=== PATIENT | female | born 1950 | race Caucasian/White ===

== ENCOUNTER 2017-02-17 16:43 | Inpatient (IN) | payer MEDICARE, MEDICAID ==
[~2017-02-17] VITALS: Ht 167.6 cm; Wt 79.4 kg
--- NOTE | 2017-02-17 16:45 | NUR ---
BIBRA FROM FROM [facility] LEFT SIDE FACIAL DROOP X 45MINS RN LPN LVN. PATIENT REMAINS AWAKE, ALERT AND ORIENTED,SATING 92 % ON ROOM AIR. NO SLURRED SPEECH NOTED. NO BODY WEAKNESS NOTED. PATIENT'S VS STABLE/. PROVIDED O2 VIA NC. MD MCINTYRE MADE AWARE OF PATIENT;S ARRIVAL.
--- NOTE | 2017-02-17 16:45 | NUR ---
Note undone in EDM - 02/17/17 at 1703 by [email or web address] BIBRA FROM [facility] LEFT SIDE FACIAL DROOP X 45MINS CARBONATION TESTER. PATIENT REMAINS AWAKE, ALERT AND ORIENTED,SATING 92 % ON ROOM AIR. NO SLURRED SPEECH NOTED. NO BODY WEAKNESS NOTED. PATIENT'S VS STABLE/. PROVIDED O2 VIA NC. MD MCINTYRE MADE AWARE OF PATIENT;S ARRIVAL.
--- NOTE | 2017-02-17 16:47 | NUR ---
CODE STROKE ACTIVATED BY MD MCINTYRE
--- NOTE | 2017-02-17 16:48 | NUR ---
PATIENT WAS TAKEN STRAIGHT TO CT
--- NOTE | 2017-02-17 16:58 | NUR ---
CALLED [facility]. DR NGUYEN WILL BE CALLING BACK
--- NOTE | 2017-02-17 16:59 | NUR ---
PATIENT IS BACK FROM CT
--- NOTE | 2017-02-17 17:00 | NUR ---
FUSE CUTTER AT BS
--- NOTE | 2017-02-17 17:06 | NUR ---
SUGAR PICCLINE NOTED WITH NO RESISTANCE
--- NOTE | 2017-02-17 17:07 | NUR ---
DR. NGUYEN FROM [facility]- TALKING TO THE PT THRU ROBOT
--- NOTE | 2017-02-17 17:15 | NUR ---
DR. MCINTYRE AT BS TALKING TO DR. NGUYEN. FRIEND AT BS AND UPDATED WITH POC.
[2017-02-17 17:19] LABS: BASOPHILS # (AUTO) 0.7 /CMM (0.0-0.2); BASOPHILS % (AUTO) 2.8 % (0.0-2.0); EOSINOPHILS # (AUTO) 0.2 /CMM (0.0-0.7); HEMATOCRIT 29 % (33-45); HEMOGLOBIN 9.2 g/dL (11.5-14.8); LYMPHOCYTES # (AUTO) 0.9 /CMM (0.8-4.8); LYMPHOCYTES % (AUTO) 3.8 % (20.0-44.0); MEAN CORPUSCULAR HEMOGLOBIN 25 PG (26.0-33.0); MEAN CORPUSCULAR HGB CONC 31 g/dl (31.0-36.0); MEAN CORPUSCULAR VOLUME 80 fL (82-100); MONOCYTES # (AUTO) 1.8 /CMM (0.1-1.30); MONOCYTES % (AUTO) 7.5 % (2.0-12.0); NEUTROPHILS # (AUTO) 20.3 /CMM (1.8-8.9); NEUTROPHILS % (AUTO) 84.9 % (43.0-81.0); PLATELET COUNT (AUTO) 606 /CMM (150-450); RDW COEFFICIENT OF VARIATION 19.9 (11.5-15.0); WHITE BLOOD COUNT (AUTO) 23.9 K/uL (4.3-11.0)
[2017-02-17] MEDS ORDERED: predniSONE 20 MG TABLET ONE (17:19)
[2017-02-17] MEDS ORDERED: ASPIRIN 325 MG TABLET ONE (17:20)
[2017-02-17] MEDS ORDERED: VALACYCLOVIR HCL 500 MG TABLET ONE (17:20)
[2017-02-17] MEDS ORDERED: predniSONE 20 MG TABLET PO ONE (17:30)
[2017-02-17] MEDS ORDERED: VALACYCLOVIR HCL 500 MG TABLET PO ONE (17:30)
[2017-02-17] MEDS ORDERED: ASPIRIN 325 MG TABLET PO ONE (17:30)
[2017-02-17] MEDS ORDERED: IPRA3AMP IH (17:32)
[2017-02-17] MEDS ORDERED: NA P133E RC (17:32)
[2017-02-17] MEDS ORDERED: TRAZ-144 PO (17:32)
[2017-02-17] MEDS ORDERED: LEVO125T8 PO (17:32)
[2017-02-17] MEDS ORDERED: AMIO200T2 PO (17:32)
[2017-02-17] MEDS ORDERED: FLUT1DIS5 IH (17:32)
[2017-02-17] MEDS ORDERED: TIOT4MIS2 INH (17:32)
[2017-02-17] MEDS ORDERED: FOND7.5D9 SQ (17:32)
[2017-02-17] MEDS ORDERED: DOCU-170 PO (17:32)
[2017-02-17] MEDS ORDERED: BISA10SU8 RC (17:32)
[2017-02-17] MEDS ORDERED: BUDE1AMP2 IH (17:32)
[2017-02-17] MEDS ORDERED: ACET-868 PO (17:32)
[2017-02-17] MEDS ORDERED: MAGN400O6 PO (17:32)
[2017-02-17] MEDS ORDERED: HYDR-552 PO (17:32)
[2017-02-17 17:33] LABS: CALCIUM, SERUM 9.8 mg/dL (8.5-10.1); CARBON DIOXIDE 33 mmol/L (21-32); CHLORIDE 96 mmol/L (98-107); CREATININE 0.7 mg/dL (0.6-1.3); GLUCOSE 97 mg/dL (74-106); POTASSIUM 4.5 mmol/L (3.5-5.1); SODIUM SERUM 134 mmol/L (136-145); UREA NITROGEN, BLOOD 12 mg/dL (7-18)
[2017-02-17] MEDS ORDERED: HYDROCODONE/APAP 5/325MG 1 EACH TABLET ONE (17:51)
[2017-02-17 18:00] LABS: INR 1.13 (0.87-1.13); PROTHROMBIN TIME 11.8 SECS (9.5-12.7)
[2017-02-17] MEDS ORDERED: HYDROCODONE/APAP 5/325MG 1 EACH TABLET PO ONE (18:00)
--- NOTE | 2017-02-17 18:00 | NUR ---
FC INITIATED. URINE SAMPLE OBTAINED, SENT.
[2017-02-17 18:15] LABS: TROPONIN I < 0.017 ng/mL (0.00-0.056)
[2017-02-17 18:18] LABS: BAND % (MANUAL) 4 % (0.0-5.0); EOSINOPHILS % (MANUAL) 2 % (0-4); LYMPHOCYTES % (MANUAL) 5 % (16-48); MONOCYTES % (MANUAL) 4 % (0-11.0); NEUTROPHILS % (MANUAL) 85 (42-76)
[2017-02-17] MEDS ORDERED: PIPERACILLIN /TAZOBACTAM 3.375 G in IV D5W 50 ML IV ONE (18:30)
[2017-02-17 18:42] LABS: APPEARANCE,URINE Clear (CLEAR); BILIRUBIN,URINE Negative (NEGATIVE); BLOOD, URINE Negative Ery/uL (NEGATIVE); COLOR,URINE Yellow (YELLOW); KETONES,URINE Negative (NEGATIVE); LEUKOCYTE ESTERASE ,URINE Negative (NEGATIVE); NITRITE, URINE Negative (NEGATIVE); PROTEIN,URINE Trace mg/dl (NEGATIVE); UGLUCOSE Negative (NEGATIVE)
[2017-02-17 18:50] LABS: BACTERIA,URINE Moderate /HPF (None Seen); RBC,URINE NONE SEEN /HPF (0-2); WBC,URINE 0-2 /HPF (0-3)
[2017-02-17 18:51] LABS: SQUAMOUS EPITHELIAL CELL,UR Few /HPF (None Seen)
[2017-02-17 18:53] LABS: ALBUMIN 2.1 g/dL (3.4-5.0); BILIRUBIN,DIRECT 0.1 mg/dL (0.0-0.2); BILIRUBIN,TOTAL 0.3 mg/dL (0.2-1.0); TOTAL PROTEIN, SERUM 6.9 g/dL (6.4-8.2)
--- NOTE | 2017-02-17 19:01 | NUR ---
REPORT GIVEN TO JONI CARNES FOR TELE ROOM 306.
--- NOTE | 2017-02-17 19:04 | NUR ---
ADMIT TO THE FLOOR, ACCEPTED BY DR. RIVAS
[2017-02-17 19:30] VITALS: BP 107/59
--- NOTE | 2017-02-17 19:30 | NUR ---
SUPERVISOR WATERPROOFING NOTE RECEIVED PATIENT AWAKE ALERT AND ORIENTED, VIA GURNEY FROM ER. PATIENT RECEIVING 3L OF O2 VIA NASAL CANNULA FOR SOB. NEURO CHECKS DONE. RIGHT SIDED FACIAL DROOP NOTED. NO OTHER DEFICIENCIES. ALL EXTREMITIES STRONG AND WNL. SPEECH CLEAR. PATIENT DENIES ANY PAIN AT THIS TIME. PICC LINE TO SUGAR INTACT WITH NO REDNESS NOTED. ALL BELONGINGS CHECKED AND ACCOUTNED FOR. SKIN INTACT WITH NO BREAKDOWN NOTED. SOME BRUISING NOTED TO BILAT. ARMS. BED LOCKED AND IN LOWEST POSITION, SIDE RAILS UP, CALL LIGHT WITHIN REACH. WILL NOTIFY DR. RANGEL.
[2017-02-17 20:00] VITALS: BP 107/59
--- NOTE | 2017-02-17 20:30 | NUR ---
CHILDREN'S TUTOR NURSERY NOTE ORDERS RECEIVED AND CARRIED OUT.
[2017-02-17] MEDS: IV D5/ 0.9% NACL 1,000 ML IV PRN (21:02)
[2017-02-18] VITALS: BP 127/74
[2017-02-18] MEDS ORDERED: PIPERACILLIN /TAZOBACTAM 3.375 G in IV D5W 50 ML IV SCH ×2 (03:00→07:36)
[2017-02-18] MEDS ORDERED: PIPERACILLIN /TAZOBACTAM 3.375 G VIAL IV ONE (03:00)
[2017-02-18 04:00] VITALS: BP 118/71
[2017-02-18] MEDS: IV D5/ 0.9% NACL 1,000 ML IV PRN ×2 (06:29→18:12)
[2017-02-18 06:34] LABS: HEMATOCRIT 28 % (33-45); HEMOGLOBIN 8.7 g/dL (11.5-14.8); LYMPHOCYTES # (AUTO) 0.4 /CMM (0.8-4.8); LYMPHOCYTES % (AUTO) 2.2 % (20.0-44.0); MEAN CORPUSCULAR HEMOGLOBIN 25 PG (26.0-33.0); MEAN CORPUSCULAR HGB CONC 31 g/dl (31.0-36.0); MEAN CORPUSCULAR VOLUME 81 fL (82-100); MONOCYTES # (AUTO) 0.6 /CMM (0.1-1.30); MONOCYTES % (AUTO) 3.2 % (2.0-12.0); NEUTROPHILS # (AUTO) 18.3 /CMM (1.8-8.9); NEUTROPHILS % (AUTO) 94.6 % (43.0-81.0); PLATELET COUNT (AUTO) 518 /CMM (150-450); RDW COEFFICIENT OF VARIATION 21.4 (11.5-15.0); RED BLOOD CELL COUNT(AUTO) 3.45 MIL/uL (4.0-5.2); WHITE BLOOD COUNT (AUTO) 19.3 K/uL (4.3-11.0)
--- NOTE | 2017-02-18 06:44 | NUR ---
MS RN NOTE PATIENT STABLE. RECEIVING 3L VIA NASAL CANNULA. SLEEPING AT THIS TIME. IV FLUIDS RUNNING ORDERED. F/C C/D/I. TELE DISCONTINUED. WILL ENDORSE TO DAY SHIFT FOR SIMIN.
[2017-02-18 06:55] LABS: CALCIUM, SERUM 9.4 mg/dL (8.5-10.1); CREATININE 0.7 mg/dL (0.6-1.3); MAGNESIUM 2.2 mg/dL (1.8-2.4); PHOSPHORUS 5.4 mg/dL (2.5-4.9); POTASSIUM 4.1 mmol/L (3.5-5.1)
--- NOTE | 2017-02-18 07:25 | NUR ---
MS RN NOTES RECEIVED PATIENT IN BED, AWAKE. A/O X3 ON OXYGEN AT 3LPM VIA NC, APPEARS PALE, WEAK BUT COMFORTABLE IN BED. NO SOB. IVF D5 1/2 NS INFUSING AT 100ML/HR. PATIENT IS CURRENTLY ON NPO STATUS ORDERED. RIGHT CHEST PRESENCE OF DRAIN, DRESSING IN PLACE. CALL LIGHT WITHIN REACH. WILL CONT TO MONITOR.
--- NOTE | 2017-02-18 08:10 | NUR ---
REPORT GIVEN TO ABDULAZIZ/RN FOR CONTINUITY OF CARE.
--- NOTE | 2017-02-18 08:11 | NUR ---
MS RN RECEIVE DON BED, SLEEPING, ORIENTED X3,NOT IN ANYF ORM OF DISTRESS, RESPIRATIONS EVEN AND UNLABORED,NO SOB NOTED, ON 2 2LITERS, SATURATING 97%,ABDOMEN SOFT,POSITIVE BOWEL SOUNDS,DENIES PAIN AT THIS TIME, WILL MONITOR PATIENT'S CONDITION.CALL LIGHT W/IN REACH.
[2017-02-18] MEDS ORDERED: FLUTICASONE/SALMETEROL DISKUS IH SCH ×2 (09:00→17:00)
[2017-02-18] MEDS ORDERED: TIOTROPIUM BROMIDE 6 CAP/BOX CAP.W.DEV IH SCH (09:00)
--- NOTE | 2017-02-18 10:00 | NUR ---
MS RN WAS SEEN BY DR. CHELITA Crooks/ ORDERS MADE AND CARRIED OUT.
[2017-02-18 10:17] LABS: BAND % (MANUAL) 3 % (0.0-5.0); LYMPHOCYTES % (MANUAL) 4 % (16-48); MONOCYTES % (MANUAL) 3 % (0-11.0); NEUTROPHILS % (MANUAL) 90 (42-76)
[2017-02-18] MEDS ORDERED: ONDANSETRON HCL/PF 4 MG/2 ML VIAL IV PRN (11:00)
--- NOTE | 2017-02-18 11:20 | NUR ---
MS RN WAS SEEN BY SPEECH THERAPIST, PUREED DIET RECOMMENDED.
[2017-02-18 12:00] LABS: CHOLESTEROL 150 mg/dL (<200); HDL CHOLESTEROL 56 mg/dL (40-60); LDL 77 mg/dL (0-99); TRIGLYCERIDES 79 mg/dL (30-150)
--- NOTE | 2017-02-18 12:00 | NUR ---
MS CARNES LUNCH SERVED,DUE MEDS GIVEN,TOLERATED WELL.
--- NOTE | 2017-02-18 12:20 | NUR ---
MS RN REFUSED PT AT THIS TIME.
--- NOTE | 2017-02-18 12:20 | NUR ---
MS RN REFUSED PT AT THIS TIME.
[2017-02-18] MEDS: PANTOPRAZOLE 40 MG VIAL IV SCH (12:22)
[2017-02-18] MEDS: FLUTICASONE/VILANTEROL 1 EACH BLST.W.DEV IH SCH (12:22)
[2017-02-18] MEDS: PIPERACILLIN /TAZOBACTAM 3.375 G in IV D5W 50 ML IV SCH ×2 (12:26→18:12)
[2017-02-18] MEDS ORDERED: ACETAMINOPHEN 325 MG TABLET PO PRN (12:30)
[2017-02-18] MEDS ORDERED: BISACODYL SUPP (10 MG) 10 MG/SUPP.RECT SUPP.RECT RC PRN (12:30)
[2017-02-18] MEDS ORDERED: MAGNESIUM HYDROXIDE 30 ML UDC PO PRN (12:30)
[2017-02-18] MEDS ORDERED: NA PHOS,M-B/NA PHOS,DI-BA 1 EA ENEMA RC PRN (12:30)
[2017-02-18] MEDS ORDERED: DOCUSATE SODIUM 100 MG CAPSULE PO PRN (12:30)
[2017-02-18] MEDS ORDERED: IPRATROPIUM NEB FS 0.5 MG/2.5 ML AMPUL.NEB NEB PRN (13:00)
[2017-02-18 16:00] VITALS: BP 131/72
[2017-02-18] MEDS: HYDROCODONE/APAP 5/325MG 1 EACH TABLET PO PRN (16:41)
[2017-02-18] MEDS: HYDROMORPHONE 1 MG/1 ML DISP.SYRIN IV PRN (18:12)
--- NOTE | 2017-02-18 19:00 | NUR ---
ms rn patient went down to ct scan,all needs attended.
[2017-02-18] MEDS ORDERED: IOHEXOL-300 100 ML VIAL IV ONE (19:06)
[2017-02-18] MEDS ORDERED: IV NS 0.9% 250 ML IV ONE (19:06)
[2017-02-18 20:00] VITALS: BP 124/62
[2017-02-18] MEDS: ENOXAPARIN SODIUM 40 MG/0.4 ML DISP.SYRIN SQ SCH (20:05)
[2017-02-18] MEDS: IPRATROPIUM NEB FS 0.5 MG/2.5 ML AMPUL.NEB NEB SCH (20:08)
[2017-02-18] MEDS: BUDESONIDE RESPULE INH 0.5 MG/2 ML AMPUL.NEB IH SCH (20:29)
--- NOTE | 2017-02-18 20:30 | NUR ---
VAMSI RN NOTE PATIENT STABLE. ARRIVED BACK FROM CT. ON 3L O2 VIA NASAL CANNULA. BED LOCKED AND IN LOWEST POSITION. SIDE RAILS UP, CALL LIGHT WITHIN REACH. WILL CONTINUE TO MONITOR.
[2017-02-19] MEDS: PIPERACILLIN /TAZOBACTAM 3.375 G in IV D5W 50 ML IV SCH ×4 (00:26→18:18)
[2017-02-19] MEDS: HYDROMORPHONE 1 MG/1 ML DISP.SYRIN IV PRN ×3 (00:27→14:33)
[2017-02-19] MEDS: IPRATROPIUM NEB FS 0.5 MG/2.5 ML AMPUL.NEB NEB SCH ×4 (01:49→19:35)
[2017-02-19] MEDS: HYDROCODONE/APAP 5/325MG 1 EACH TABLET PO PRN (05:45)
[2017-02-19] MEDS: IV D5/ 0.9% NACL 1,000 ML IV PRN ×2 (05:51→17:28)
[2017-02-19 06:45] LABS: EOSINOPHILS # (AUTO) 0.3 /CMM (0.0-0.7); EOSINOPHILS % (AUTO) 1.6 % (0.0-6.0); HEMATOCRIT 28 % (33-45); HEMOGLOBIN 8.4 g/dL (11.5-14.8); LYMPHOCYTES # (AUTO) 0.5 /CMM (0.8-4.8); LYMPHOCYTES % (AUTO) 2.7 % (20.0-44.0); MEAN CORPUSCULAR HEMOGLOBIN 25 PG (26.0-33.0); MEAN CORPUSCULAR HGB CONC 30 g/dl (31.0-36.0); MEAN CORPUSCULAR VOLUME 81 fL (82-100); MONOCYTES # (AUTO) 1.4 /CMM (0.1-1.30); MONOCYTES % (AUTO) 8.3 % (2.0-12.0); NEUTROPHILS # (AUTO) 15.3 /CMM (1.8-8.9); NEUTROPHILS % (AUTO) 87.4 % (43.0-81.0); PLATELET COUNT (AUTO) 568 /CMM (150-450); RDW COEFFICIENT OF VARIATION 21.2 (11.5-15.0); RED BLOOD CELL COUNT(AUTO) 3.39 MIL/uL (4.0-5.2); WHITE BLOOD COUNT (AUTO) 17.5 K/uL (4.3-11.0)
--- NOTE | 2017-02-19 06:50 | NUR ---
MS RN NOTE PATIENT STABLE. ALL NEEDS MET AND ATTENDED TO. WILL ENDORSE TO DAY SHIFT FOR SIMIN.
[2017-02-19 06:59] LABS: CALCIUM, SERUM 8.8 mg/dL (8.5-10.1); CREATININE 0.7 mg/dL (0.6-1.3); PHOSPHORUS 3.9 mg/dL (2.5-4.9); POTASSIUM 3.8 mmol/L (3.5-5.1); THYROID STIMULATING HORMONE 1.96 uIU/mL (0.358-3.74)
--- NOTE | 2017-02-19 07:30 | NUR ---
RN OPENING NOTES RECEIVED PT. IN BED A&OX3. BREATHING ON OXYGEN 3L/MIN, HEAD OF BED IS UP. NO S/S OF ACUTE DISTRESS. IV FLUIDS RUNNING AT 100 ML/HR. PT. HAS A LEFT UPPER ARM PICC DOUBLE LUMEN. DÍAZ CATHETER IN PLACE WITH CLEAR, AND YELLOW URINE. BED IS IN LOW LOCKED POSITION, 2 SIDE RAILS UP, AND INSTRUCTED PT. TO USE CALL LIGHT FOR ASSISTANCE. WILL CONTINUE TO ASSESS AND MONITOR.
[2017-02-19 08:12] VITALS: BP 110/69
[2017-02-19] MEDS: BUDESONIDE RESPULE INH 0.5 MG/2 ML AMPUL.NEB IH SCH ×2 (08:12→16:22)
[2017-02-19] MEDS ORDERED: Medication Not On Formulary EA (Tiotropium Bromide (Spiriva Respimat) 2 PUFF) INH SCH (09:00)
[2017-02-19] MEDS: PANTOPRAZOLE 40 MG VIAL IV SCH (09:17)
[2017-02-19] MEDS: LEVOTHYROXINE SODIUM 125 MCG TABLET PO SCH (09:17)
[2017-02-19] MEDS: FLUTICASONE/VILANTEROL 1 EACH BLST.W.DEV IH SCH (09:18)
[2017-02-19] MEDS: TRAZODONE 50 MG TABLET PO SCH (09:18)
[2017-02-19] MEDS: AMIODARONE HCL 200 MG TABLET PO SCH (09:18)
--- NOTE | 2017-02-19 11:00 | NUR ---
RN NOTES PT. WAS SEEN AND EVALUATED BY SPEECH THERAPIST FOR SWALLOW EVALUATION. PER ST WAS RECOMMENDED SMALL PORTION OF PUREE FOOD ONLY, AND OKAY TO DRINK THIN LIQUIDS.
[2017-02-19] MEDS: VALACYCLOVIR HCL 500 MG TABLET PO SCH ×2 (13:03→20:33)
[2017-02-19] MEDS: predniSONE 20 MG TABLET PO SCH (13:03)
[2017-02-19 16:00] VITALS: BP 110/62
--- NOTE | 2017-02-19 16:19 | NUR ---
RN NOTES PT. LEFT ROOM 308 BED 2 AND MOVED TO NEW ROOM 306 BED 2 DUE TO PT. IN BED 308 BED 1 WAS PLACED ON ISOLATION.
--- NOTE | 2017-02-19 16:24 | NUR ---
RT PT IS AWAKE AND ALERT. PT REFUSED HHN TX AT THIS TIME. NO SIGNS OF SOB OR RESPIRATORY DISTRESS NOTED. WILL CONTINUE TO MONITOR. Addendum: 02/19/17 at 1626 by VENKAT SWAIN RT Amended: Links added.
[2017-02-19] MEDS: ALBUTEROL FS 2.5 MG/0.5 ML VIAL.NEB NEB PRN (19:35)
--- NOTE | 2017-02-19 19:35 | NUR ---
RN CLOSING NOTES PT. IN BED A&OX3. BREATHING ON OXYGEN 3L/MIN, HEAD OF BED IS UP. NO S/S OF ACUTE DISTRESS. IV FLUIDS RUNNING AT 100 ML/HR. PT. HAS A LEFT UPPER ARM PICC DOUBLE LUMEN. DÍAZ CATHETER IN PLACE WITH CLEAR, AND YELLOW URINE. BED IS IN LOW LOCKED POSITION, 2 SIDE RAILS UP, AND INSTRUCTED PT. TO USE CALL LIGHT FOR ASSISTANCE. WILL ENDORSE REPORT TO NURSE.
[2017-02-19 20:00] VITALS: BP 118/67
[2017-02-19] MEDS: ENOXAPARIN SODIUM 40 MG/0.4 ML DISP.SYRIN SQ SCH (20:32)
[2017-02-19] MEDS: LORAZEPAM INJ 2 MG/ML VIAL IV PRN (20:34)
--- NOTE | 2017-02-19 20:43 | NUR ---
Nursing Notes opening: Recieved patient A/Ox4, 02 sats90% on 3.5L, resp called and Venturs mask applied, sats93% withen 3 minutes. Lungs via auscultation RT and LEFT exp and insp wheezing . Patient requisting different mask, resp called and face mask applied and Sats at 94%. Patient requisting ATIVAN to be relaxed. Momitor sats and holding at 94% ATIVAN given with explaination to patient that I'd be in to check freq. No facial droop as stated seen at this time. Moving all extremities. Noted she swallows thin liquids w/o a problem. Ochoa clear yellow drainage. Remains in High folwlers position. Right foot 2+ elevated on a pillow left foot 1+ elevated on a pillow Noted she is on daily Lasix. Will monitor resp status closely this 12 ours
--- NOTE | 2017-02-19 20:59 | NUR ---
NURSING NOTES: Sats 99 - 100% with face mask and patient is sleeping.
[2017-02-19 21:14] VITALS: BP 118/67
[2017-02-20] MEDS: PIPERACILLIN /TAZOBACTAM 3.375 G in IV D5W 50 ML IV SCH ×4 (00:13→17:44)
[2017-02-20] MEDS: ALBUTEROL FS 2.5 MG/0.5 ML VIAL.NEB NEB PRN (01:34)
[2017-02-20] MEDS: IPRATROPIUM NEB FS 0.5 MG/2.5 ML AMPUL.NEB NEB SCH ×4 (01:34→19:56)
[2017-02-20] MEDS: LORAZEPAM INJ 2 MG/ML VIAL IV PRN (02:20)
--- NOTE | 2017-02-20 03:11 | NUR ---
Nursing notes: Patient commentwed "I just want to sleep, and only the Ativan works, I tried Norso and that doesn't help me to sleep." With the face mask and 02 at 9 liters her sats are 94 - 96% At the beginning of the shift she had a n/c and had sats 88 - 89%, resp was called and tx given and vent mask applied. Patient only tolerated the vent mask for 30 minutes and wanted the face mask instead. Face mask at 9 liters is effective holding Sats at 94 - 99%. She becomes anxious and Ativan effective for this, causing her to sleep. Ativan didn't cause her to desat even when she was asleep. Right foot 2+ edema left foor1+ edema. Pic line used to draw the AM Labs. Lungs via ausculation ins/exp wheezing
[2017-02-20] MEDS: HYDROCODONE/APAP 5/325MG 1 EACH TABLET PO PRN ×3 (03:48→21:07)
[2017-02-20] MEDS: IV D5/ 0.9% NACL 1,000 ML IV PRN (05:39)
[2017-02-20 06:51] LABS: HEMATOCRIT 27 % (33-45); HEMOGLOBIN 8.1 g/dL (11.5-14.8); LYMPHOCYTES # (AUTO) 0.4 /CMM (0.8-4.8); LYMPHOCYTES % (AUTO) 2.2 % (20.0-44.0); MEAN CORPUSCULAR HEMOGLOBIN 24 PG (26.0-33.0); MEAN CORPUSCULAR HGB CONC 30 g/dl (31.0-36.0); MEAN CORPUSCULAR VOLUME 81 fL (82-100); MONOCYTES % (AUTO) 5.3 % (2.0-12.0); NEUTROPHILS # (AUTO) 17.4 /CMM (1.8-8.9); NEUTROPHILS % (AUTO) 92.5 % (43.0-81.0); PLATELET COUNT (AUTO) 564 /CMM (150-450); RDW COEFFICIENT OF VARIATION 21.5 (11.5-15.0); RED BLOOD CELL COUNT(AUTO) 3.32 MIL/uL (4.0-5.2); WHITE BLOOD COUNT (AUTO) 18.8 K/uL (4.3-11.0)
[2017-02-20] MEDS: LEVOTHYROXINE SODIUM 125 MCG TABLET PO SCH (06:59)
[2017-02-20 07:00] LABS: CALCIUM, SERUM 9.2 mg/dL (8.5-10.1); CREATININE 0.7 mg/dL (0.6-1.3); PHOSPHORUS 4.4 mg/dL (2.5-4.9); POTASSIUM 3.4 mmol/L (3.5-5.1)
--- NOTE | 2017-02-20 07:05 | NUR ---
MS RN OPENING NOTES RECEIVED PT FROM NIGHTSHIFT NURSE IN STABLE CONDITION. PT IS A/O X4. NO SOB OR SIGNS OF DISTRESS NOTED. BREATHING IS EVEN AND UNLABORED. PT IS ON 5L O2 VIA MASK AND SATING WELL AT 95%. DÍAZ CATHETER NOTED AND DRAINING CLEAR YELLOW URINE. RIGHT ARM PICC LINE ALSO NOTED AND INFUSING D5 NS @100ML/HR ORDERED. PT IS TOLERATING INFUSION WELL. NO REDNESS OR SIGNS OF INFILTRATION NOTED. BED IN LOW LOCKED POSITION, SIDE RAILS UP X2, CALL LIGHT WITHIN REACH. WILL CONTINUE TO MONITOR
[2017-02-20 08:00] VITALS: BP 136/80
[2017-02-20] MEDS: HYDROMORPHONE 1 MG/1 ML DISP.SYRIN IV PRN ×3 (08:57→18:34)
[2017-02-20] MEDS: predniSONE 20 MG TABLET PO SCH (09:33)
[2017-02-20] MEDS: TRAZODONE 50 MG TABLET PO SCH (09:33)
[2017-02-20] MEDS: PANTOPRAZOLE 40 MG VIAL IV SCH (09:33)
[2017-02-20] MEDS: VALACYCLOVIR HCL 500 MG TABLET PO SCH ×2 (09:34→20:54)
[2017-02-20] MEDS: FLUTICASONE/VILANTEROL 1 EACH BLST.W.DEV IH SCH (09:36)
[2017-02-20] MEDS: AMIODARONE HCL 200 MG TABLET PO SCH (09:36)
[2017-02-20] MEDS: BUDESONIDE RESPULE INH 0.5 MG/2 ML AMPUL.NEB IH SCH ×2 (10:19→17:27)
[2017-02-20] MEDS ORDERED: POTASSIUM CHLORIDE 20 MEQ TAB.PRT.SR PO SCH (11:30)
[2017-02-20 16:00] VITALS: BP 137/77
--- NOTE | 2017-02-20 18:24 | NUR ---
MS RN CLOSING NOTES PT REMAINS IN STABLE CONDITION. ALL NEEDS WERE MET DURING SHIFT AND ORDERS CARRIED OUT ACCORDINGLY. ALL DUE MEDS GIVE. PT WAS REPOSITIONED AND TURNED Q2HRS. SKIN CARE PROVIDED. DÍAZ CATHETER REMAINS INTACT AND DRAINING TO GRAVITY. UA SAMPLE TAKEN, AND LAB CALLED FOR PICKUP. PT'S REMAIN ON 5L O2 VIA NC WITH HUMIDIFICATION AND CURRENTLY SATING AT 92%. ALL SAFETY MEASURES REMAIN IN PLACE. WILL ENDORSE TO NIGHTSHIFT NURSE FOR SIMIN
[2017-02-20 20:00] VITALS: BP 127/76
[2017-02-20] MEDS: ENOXAPARIN SODIUM 40 MG/0.4 ML DISP.SYRIN SQ SCH (20:54)
[2017-02-21] MEDS: PIPERACILLIN /TAZOBACTAM 3.375 G in IV D5W 50 ML IV SCH ×5 (01:11→23:57)
[2017-02-21] MEDS: HYDROMORPHONE 1 MG/1 ML DISP.SYRIN IV PRN ×4 (01:11→22:46)
[2017-02-21] MEDS: IPRATROPIUM NEB FS 0.5 MG/2.5 ML AMPUL.NEB NEB SCH ×4 (02:11→19:13)
--- NOTE | 2017-02-21 06:21 | NUR ---
MS RN NOTES AWAKE & RESPONSIVE. NOT IN ANY DISTRESS. NO SOB NOTED. DENIES ANY PAIN OR DISCOMFORT AT THIS TIME. WITH IVF INFUSING WELL. MONITORED ACCORDINGLY. CALL LIGHT WITHIN REACH. BED IN LOWEST POSITION. SR UP X 3 FOR SAFETY. WILL ENDORSE TO NEXT SHIFT.
--- NOTE | 2017-02-21 07:21 | NUR ---
MS/RN OPENING NOTE PATIENT RECEIVED IN BED IN STABLE CONDITION. A/O X4. NO SIGNS OF ACUTE DISTRESS. NO COMPLAIN OF PAIN OR DISCOMFORT. ALL NEEDS ATTENDED TO. CALL LIGHT WITHIN REACH. WILL CONTINUE TO MONITOR TO ENSURE SAFETY.
[2017-02-21 07:29] LABS: CALCIUM, SERUM 9.6 mg/dL (8.5-10.1); CREATININE 0.6 mg/dL (0.6-1.3); POTASSIUM 4.4 mmol/L (3.5-5.1)
[2017-02-21 08:00] VITALS: BP 126/85
[2017-02-21] MEDS: FLUTICASONE/VILANTEROL 1 EACH BLST.W.DEV IH SCH (09:08)
[2017-02-21] MEDS: TRAZODONE 50 MG TABLET PO SCH (09:10)
[2017-02-21] MEDS: VALACYCLOVIR HCL 500 MG TABLET PO SCH ×2 (09:10→20:34)
[2017-02-21] MEDS: predniSONE 20 MG TABLET PO SCH (09:10)
[2017-02-21] MEDS: PANTOPRAZOLE 40 MG VIAL IV SCH (09:10)
[2017-02-21] MEDS: LEVOTHYROXINE SODIUM 125 MCG TABLET PO SCH (09:11)
[2017-02-21] MEDS: AMIODARONE HCL 200 MG TABLET PO SCH (09:11)
[2017-02-21] MEDS: BUDESONIDE RESPULE INH 0.5 MG/2 ML AMPUL.NEB IH SCH ×2 (09:29→16:08)
[2017-02-21] MEDS ORDERED: CT SWABBABLE VALVE TRANS SET 1 EA INFUS.SET MC ONE (09:40)
[2017-02-21] MEDS ORDERED: IOHEXOL-300 100 ML VIAL IV ONE (09:40)
[2017-02-21] MEDS ORDERED: IV NS 0.9% 250 ML IV ONE (09:40)
--- NOTE | 2017-02-21 10:34 | NUR ---
MS/RN SPOKE WITH DR HERNANDEZ RECEIVED CALL FROM DR HERNANDEZ RADIOLOGIST, PER DR HERNANDEZ, HE SPOKE WITH DR TINSLEY WITH ORDER TO HOLD US NEEDLE GUIDED BIOPSY OF PAROTID TILL FURTHER ORDERS SECONDARY TO PATIENT HAD CT OF NECK WITH CONTRAST DONE
[2017-02-21] MEDS: HYDROCODONE/APAP 5/325MG 1 EACH TABLET PO PRN (11:41)
[2017-02-21] MEDS: FUROSEMIDE 40 MG/4 ML VIAL IV SCH ×2 (11:42→17:35)
--- NOTE | 2017-02-21 15:34 | NUR ---
MS/RN SPOKE WITH DR FRENCH SPOKE WITH DR VIANNEY FRENCH AND MADE AWARE REGARDING MEDICAL RECORD INFO FROM DR HOLCOMB (ONCOLOGIST) OFFICE WAS RECEIVED VIA FAX. PER DR FRENCH, SHE SPOKE WITH DR HOLCOMB ALREADY AND ORDERS TO DC US NEEDLE GUIDED BIOPSY OF PAROTID. RECORDS PLACED IN PATIENT'S CHART. ORDERS NOTED AND CARRIED OUT.
[2017-02-21 16:00] VITALS: BP_SYST 119; BP_SYST 126; BP_DIAS 66; BP_DIAS 85
--- NOTE | 2017-02-21 16:18 | NUR ---
MS/RN SPOKE WITH DR MERLOS. RECEIVED CALL FROM RADIOLOGIST DANITA, PER DANITA PATIENT'S DUPLEX VENOUS OF RIGHT UPPER EXTREMITY SHOWED NON OCCLUSIVE THROMBUS IN RIGHT INTERNAL JUGULAR VEIN. DR MERLOS NOTIFIED. NO NEW ORDERS AT THIS TIME.
[2017-02-21] MEDS ORDERED: FEE PK DOSING 1 MIN EA MC ONE (18:51)
--- NOTE | 2017-02-21 18:53 | NUR ---
MS/RN CLOSING NOTE PATIENT IN BED IN STABLE CONDITION. A/O X 4. NO SIGNS OF ACUTE DISTRESS. NO COMPLAIN OF PAIN OR DISCOMFORT. ALL NEEDS ATTENDED TO. CALL LIGHT WITHIN REACH. WILL ENDORSE TO NEXT SHIFT FOR CONTINUITY OF CARE.
--- NOTE | 2017-02-21 19:30 | NUR ---
RN INITIAL NOTES: RECEIVED REPORT FROM SANDEEP RN, PT IN BED, AWAKE, A/O X4, DENIES ANY PAIN OR DISCOMFORT AT THIS TIME, PT HAS SUGAR PICC LINE WITH DOUBLE LUMEN, PATENT AND FLUSHING WELL, INFUSING WITH D5NS AT 100ML/HR. RECEIVED ON 6L VIA NC, PER RN TOR PER RT OKAY TO BE ON 6L DESPITE BEING COPD PT DESAT TO LOW 88. DÍAZ CATHETER IN PLACED, DRAINING INTO YELLOW COLORED URINE. PT REFUSED TO ELEVATE BOTH LEGS, PT HAS RIGHT CHEST PLEURX CLAMPED, DRESSING IN PLACED C/D/I, NO S/S OF REDNESS OR DRAINAGE NOTED, PER MD NO NEED TO DRAIN. SAFETY PRECAUTIONS FOR FALL INITIATED CALL LIGHT IN REACH, WILL CONTINUE TO MONITOR
[2017-02-21 20:00] VITALS: BP 119/74
--- NOTE | 2017-02-21 20:30 | NUR ---
RN NOTES: 95% ON 6L, INFORMED RT NIYA IF OKAY TO TITRATE PT HAS COPD, ALSO INFORMED THE NEED FOR PULSE OXIMETER PT ALSO RECEIVING PAIN MEDICATION-IV DILAUDID, PER RT SHE WILL TAKE A LOOK AT IT AND WILL FIND PULSE OXIMETER MACHINE
[2017-02-21] MEDS: ENOXAPARIN SODIUM 40 MG/0.4 ML DISP.SYRIN SQ SCH (20:38)
[2017-02-21] MEDS: VANCOMYCIN 1 GM in IV D5W 250 ML IV SCH (20:39)
--- NOTE | 2017-02-21 21:30 | NUR ---
RN NOTES: RT TITRATED O2 TO 3L VIA NC, PULSE OX IN PLACED, SPO2 93%-95%
--- NOTE | 2017-02-21 22:24 | NUR ---
RN NOTES: PT IN BED, AWAKE, REMAINS ON 6L VIA NC, RESPIRATION EVEN AND UNLABORED, LEFT UA PICC LINE DOUBLE LUMEN, REMAINS PATENT AND FLUSHING WELL, INFUSING WITH D5NS AT 100ML/HR. PT REFUSED TO ELEVATE LEGS ON A PILLOW. DÍAZ CATHETER REMAINS IN PLACED, RIGHT CHEST PLEURX IN PLACED, DRESSING C/D/I, PER MD NO NEED TO DRAIN, NO S/S OF LEAK OR REDNESS NOTED. VS STABLE, NEEDS ATTENDED, SAFETY PRECAUTIONS FOR FALL REMAINS ENGAGED, CALL LIGHT IN REACH, ENDORSED TO MIKY RN FOR CONTINUITY OF ACRE.
[2017-02-22] VITALS (33 sets, daily range): BP systolic 121–164; BP diastolic 55–86
--- NOTE | 2017-02-22 08:00 | NUR ---
RN MS NOTES PT IN BED, AWAKE, ALERT AND ORIENTED, WITH COMPLAINT OF BACK PAIN, PAIN MEDICATION GIVEN ORDERED, WILL REASSESS NEEDED, ON O2 AT 2LPM VIA NASAL CANULA, NOT IN DISTRESS, O2 SAT BETWEEN 88-92%, BREATHING TREATMENTS GIVEN ORDERED, CALL LIGHT WITHIN REACH, NEEDS ATTENDED.
[2017-02-22] MEDS: PANTOPRAZOLE 40 MG VIAL IV SCH (09:18)
[2017-02-22] MEDS: VALACYCLOVIR HCL 500 MG TABLET PO SCH ×2 (09:19→21:18)
[2017-02-22] MEDS: TRAZODONE 50 MG TABLET PO SCH (09:19)
[2017-02-22] MEDS: AMIODARONE HCL 200 MG TABLET PO SCH (09:19)
[2017-02-22] MEDS: FUROSEMIDE 40 MG/4 ML VIAL IV SCH ×2 (09:19→18:14)
[2017-02-22] MEDS: LEVOTHYROXINE SODIUM 125 MCG TABLET PO SCH (09:20)
[2017-02-22] MEDS: FLUTICASONE/VILANTEROL 1 EACH BLST.W.DEV IH SCH (09:20)
[2017-02-22] MEDS: predniSONE 20 MG TABLET PO SCH (09:20)
[2017-02-22] MEDS: BUDESONIDE RESPULE INH 0.5 MG/2 ML AMPUL.NEB IH SCH ×2 (09:20→17:04)
--- NOTE | 2017-02-22 09:30 | NUR ---
RN MS NOTES PT IN BED, AWAKE, ALERT AND ORIENTED, STATED THAT HER PAIN IS GONE, ASSISTED WITH NEEDS, ABLE TO TAKE ALL HER MEDICATION, NO SWALLOWING PROBLEM NOTED, KEPT WARM AND COMFORTABLE IN BED.
[2017-02-22] MEDS: IPRATROPIUM NEB FS 0.5 MG/2.5 ML AMPUL.NEB NEB SCH ×3 (10:02→20:54)
[2017-02-22 10:35] LABS: CALCIUM, SERUM 9.5 mg/dL (8.5-10.1); CREATININE 0.6 mg/dL (0.6-1.3); PHOSPHORUS 3.6 mg/dL (2.5-4.9); POTASSIUM 3.6 mmol/L (3.5-5.1)
[2017-02-22 11:06] LABS: EOSINOPHILS % (AUTO) 0.2 % (0.0-6.0); HEMATOCRIT 29 % (33-45); HEMOGLOBIN 8.6 g/dL (11.5-14.8); LYMPHOCYTES % (AUTO) 2.4 % (20.0-44.0); MEAN CORPUSCULAR HEMOGLOBIN 25 PG (26.0-33.0); MEAN CORPUSCULAR HGB CONC 30 g/dl (31.0-36.0); MEAN CORPUSCULAR VOLUME 82 fL (82-100); MONOCYTES % (AUTO) 3.2 % (2.0-12.0); NEUTROPHILS % (AUTO) 94.2 % (43.0-81.0); PLATELET COUNT (AUTO) 638 /CMM (150-450); RDW COEFFICIENT OF VARIATION 20.9 (11.5-15.0); RED BLOOD CELL COUNT(AUTO) 3.49 MIL/uL (4.0-5.2)
[2017-02-22 11:41] LABS: ABG BASE EXCESS 10.9 mmol/L; ABG OXYGEN SATURATION 89.2 % (92.0-98.5); ABG PCO2 62.9 mmHg (35.0-45.0); ABG PH 7.394 (7.350-7.450); ABG PO2 60.4 mmHg (75.0-100.0); AaDO2 225.3 mmHg; COHb 0.6 % (0.5-1.5); MetHb 0.3 % (0.0-1.5); O2Hb 88.4 % (94.0-97.0); SITE, ABG Right Radial; VENT MODE, BG PT ON TX
[2017-02-22] MEDS: PIPERACILLIN /TAZOBACTAM 3.375 G in IV D5W 50 ML IV SCH ×4 (11:46→23:50)
[2017-02-22] MEDS: VANCOMYCIN 1 GM in IV D5W 250 ML IV SCH ×3 (12:00→21:38)
--- NOTE | 2017-02-22 12:20 | NUR ---
PT BY BED TO ICU, SAT 80-85% ON 6L NC, DR DUKE PAGED VIA OFFICE. RT NOTIFIED TO INITIATE BIPAP.
--- NOTE | 2017-02-22 12:30 | NUR ---
RN MS NOTES PT IN BED, AWAKE, ALERT AND ORIENTED, NO COMPLAINT OF PAIN, NOTED O2 SAT AT 81%, RT CALLED FOR BREATHING TREATMENT, DR. Sedrick MONTES INFORMED, ORDERED FOR STAT CHEST XRAY AND TO TRANSFER PT TO ICU, ALSO ORDERED TO FOLLOW UP WITH RESPIRATORY, PT MAY NEED BIPAP, NOTED AND CARRIED OUT, PT INFORMED OF NEW ORDERS, REPORT AND ALL MD'S TRANSFER ORDERS GIVEN TO ILIANA CARNES OF ICU, TRANSFERED PT TO ICU VIA BED, ALL BELONGINGS AND MEDICATION SENT WITH PATIENT.
--- NOTE | 2017-02-22 13:16 | NUR ---
DR DUKE NOTIFIED ABG RESULTS AND BIPAP SETTINGS. NO NEW ORDERS, FOR NOW. HE WILL BE HERE TO SEE PT.
[2017-02-22] MEDS: HYDROMORPHONE 1 MG/1 ML DISP.SYRIN IV PRN ×2 (15:06→19:24)
--- NOTE | 2017-02-22 16:08 | NUR ---
Spoke with patient and fani Liriano at bedside. Patient is requesting to update contact info. She want her niece Deandra Paz [phone] as the 1st contact,Emelia grey in law as second [phone]; Wili Conroy son [phone]. Patient is aware about dc plan to [facility] [phone]. After SNF, patient want to be place in board and care by Mike Addendum: 02/22/17 at 1608 by SARITA ANDREW RN Amended: Links added.
--- NOTE | 2017-02-22 19:25 | NUR ---
ICU/DIETITIAN THERAPEUTIC DAY SHIFT NURSE GAVE DILAUDID FOR PAIN, PAIN TO THE LUNGS WHERE PT HAS CANCER. WILL CONTINUE TO MONITOR THIS PT AND HERE PAIN LEVEL.
[2017-02-22] MEDS: ENOXAPARIN SODIUM 80 MG/0.8 ML DISP.SYRIN SQ SCH (21:19)
--- NOTE | 2017-02-22 22:10 | NUR ---
ICU/PRIVATE WEALTH ADVISOR WAS ABLE TO TURN PT AND CLEAN HER UP A LITTLE. HOWEVER PT REFUSED TO HAVE THE BATH AND SHEETS CHANGED. PT COMPLAINED THAT IT HURTS TO MOVE AROUND AND SHE BECOMES SHORT OF BREATH. CALL LIGHT WITHIN REACH.
[2017-02-23] VITALS (39 sets, daily range): BP systolic 101–159; BP diastolic 59–77
[2017-02-23] MEDS: HYDROMORPHONE 1 MG/1 ML DISP.SYRIN IV PRN ×6 (00:29→23:07)
--- NOTE | 2017-02-23 00:35 | NUR ---
ICU/SCREENER OPERATOR PT REQUESTED PAIN MEDIATION FOR PAIN TO CHEST, PT HAS STAGE 4 LUNG CA. CHARGE NURSE WAS NOTIFIED ABOUT THIS. DILAUDID GIVEN 0.5 IVP WILL MONITOR THIS.
[2017-02-23] MEDS: IPRATROPIUM NEB FS 0.5 MG/2.5 ML AMPUL.NEB NEB SCH ×4 (01:52→20:00)
--- NOTE | 2017-02-23 02:05 | NUR ---
ICU/BUNG DROPPER RT TOOK THE BIPAP MASK OFF. PT WAS PLACED ON VENTI MASK AT 15 LITERS AND 50%. WILL CONTINUE TO MONITOR PT'S SATURATION. PT COMPLAINED ABOUT THE MASK BEING UNCOMFORTABLE, SO THIS IS WHY IT WAS CHANGED.
--- NOTE | 2017-02-23 02:53 | NUR ---
ICU/DELIVERY TRUCK DRIVER PT WAS CHARGED OVER TO THE BIPAP MASK DUE TO THE SATURATION BEING IN THE LOW 80'S. WILL CONTINUE TO MONITOR THIS PT AND HER SATURATIONS.
--- NOTE | 2017-02-23 04:30 | NUR ---
ICU/MARINE PROPULSION TECHNICIAN PT REFUSED TO HAVE A BATH THIS MORNING, SAID SHE WOULD LIKE TO SLEEP. EXPLAIN THE BENEFITS TO THE BATH. PT STILL SAID NO. WILL PASS ON TO DAY SHIFT NURSE. CALL LIGHT WITHIN REACH.
[2017-02-23] MEDS: PIPERACILLIN /TAZOBACTAM 3.375 G in IV D5W 50 ML IV SCH ×3 (05:08→17:30)
--- NOTE | 2017-02-23 05:10 | NUR ---
ICU/NUTRITIONIST PT REQUESTED PAIN MEDIATION FOR PAIN TO CHEST, PT HAS STAGE 4 LUNG CA. CHARGE NURSE WAS NOTIFIED ABOUT THIS. DILAUDID GIVEN 0.5 IVP WILL MONITOR THIS.PAIN RATED 9/10.
[2017-02-23 05:21] LABS: CALCIUM, SERUM 9.3 mg/dL (8.5-10.1); CREATININE 0.6 mg/dL (0.6-1.3); POTASSIUM 3.7 mmol/L (3.5-5.1)
[2017-02-23] MEDS: VANCOMYCIN 1 GM in IV D5W 250 ML IV SCH ×2 (06:00→21:11)
--- NOTE | 2017-02-23 06:20 | NUR ---
ICU/CLINICAL TRIALS NURSE VANCO LEVEL IS 29, CHARGE NURSE IS AWARE OF THIS LEVEL. 0600 DOSE IS HELD. PHARMACY TO RECALCULATE DOSE WHEN THEY ARRIVE.
[2017-02-23] MEDS: LEVOTHYROXINE SODIUM 125 MCG TABLET PO SCH ×2 (07:30→09:43)
[2017-02-23] MEDS: BUDESONIDE RESPULE INH 0.5 MG/2 ML AMPUL.NEB IH SCH ×2 (07:57→16:38)
[2017-02-23] MEDS: FUROSEMIDE 40 MG/4 ML VIAL IV SCH ×2 (08:09→17:30)
[2017-02-23] MEDS: PANTOPRAZOLE 40 MG VIAL IV SCH (08:09)
[2017-02-23] MEDS: ENOXAPARIN SODIUM 80 MG/0.8 ML DISP.SYRIN SQ SCH (08:37)
[2017-02-23] MEDS: AMIODARONE HCL 200 MG TABLET PO SCH ×2 (08:54→09:44)
[2017-02-23] MEDS: FLUTICASONE/VILANTEROL 1 EACH BLST.W.DEV IH SCH (08:54)
[2017-02-23] MEDS: predniSONE 20 MG TABLET PO SCH ×2 (08:55→09:44)
[2017-02-23] MEDS: TRAZODONE 50 MG TABLET PO SCH ×2 (08:55→09:44)
[2017-02-23] MEDS: VALACYCLOVIR HCL 500 MG TABLET PO SCH ×3 (08:55→21:11)
[2017-02-23] MEDS: HYDROCODONE/APAP 5/325MG 1 EACH TABLET PO PRN (09:21)
--- NOTE | 2017-02-23 09:59 | NUR ---
RETIREMENT ACTUARY NOTE 0720: Received patient resting well. On Bipap, tolerated at this time. No respiratory distress noted at this time. A/Ox4. SR 60's on the monitor. SUGAR PICC intact. Ochoa cath intact, noted with yellow urine drained to BSD. 0930: Placed patient on 6LPM of O2 via NC, breakfast given but only wanted apple sauce and pureed peach, meds given with apple sauce, tolerated. [place] given as well for c/o back pain. O2 sat 89-90% on 6LPM of O2, will continue to monitor.
[2017-02-23] MEDS ORDERED: LACTOBACILLUS RHAMNOSUS GG 1 EACH CAP.SPRINK PO SCH (17:00)
[2017-02-23] MEDS: BOOST PLUS FOOD-CHOCLATE 237 ML BOX PO SCH (17:00)
--- NOTE | 2017-02-23 18:43 | NUR ---
BUCKRAM SEWER NOTE 1430: Dilaudid given as ordered for c/o back/ lung part on the back pain. 1500: Tried to place again on Venturi mask with 50% FIO2 but desat to 76%, placed back on Bipap right away. 1700: Skipped dinner for unable to tolerate off Bipap. Able to render bed bath and change linens.
--- NOTE | 2017-02-23 19:30 | NUR ---
SALES SERVICE COORDINATOR INITIAL NOTE RECEIVED REPORT FROM TIA CARNES. PT IN BED A/A/O X4. LUNG SOUNDS DIMINISHED, ON BIPAP. BOWEL SOUNDS PRESENT. DÍAZ INTACT AND DRAINING. IV PATENT AND INTACT. PULSES PRESENT. BED IN LOW LOCKED POSITION. CALL LIGHT WITHIN REACH. WILL CONTINUE TO MONITOR.
[2017-02-23] MEDS: ALBUTEROL FS 2.5 MG/0.5 ML VIAL.NEB NEB PRN (20:00)
[2017-02-24] VITALS (29 sets, daily range): BP systolic 129–188; BP diastolic 51–78
[2017-02-24] MEDS: PIPERACILLIN /TAZOBACTAM 3.375 G in IV D5W 50 ML IV SCH ×4 (00:15→17:41)
--- NOTE | 2017-02-24 00:30 | NUR ---
VOICE WRITING REPORTER OFFERED PATIENT BED BATH. PT REFUSED AT THIS TIME. WILL RE ATTEMPT. BED IN LOW LOCKED POSITION. CALL LIGHT WITHIN REACH. WILL CONTINUE TO MONITOR.
[2017-02-24] MEDS: IPRATROPIUM NEB FS 0.5 MG/2.5 ML AMPUL.NEB NEB SCH ×4 (01:57→19:42)
--- NOTE | 2017-02-24 02:30 | NUR ---
DESIGN TEACHER PT IN BED. ON BIPAP. TOLERATING WELL. PROVIDED WATER. REPOSITIONED FOR COMFORT. BED IN LOW LOCKED POSITION. CALL LIGHT WITHIN REACH. WILL CONTINUE TO MONITOR.
--- NOTE | 2017-02-24 03:30 | NUR ---
GRILL ASSOCIATE OFFERED PATIENT BED BATH. PATIENT CONTINUES TO REFUSE. WILL REATTEMPT.
[2017-02-24] MEDS: HYDROMORPHONE 1 MG/1 ML DISP.SYRIN IV PRN ×4 (04:00→20:23)
[2017-02-24 04:46] LABS: BASOPHILS % (AUTO) 0.1 % (0.0-2.0); EOSINOPHILS # (AUTO) 0.1 /CMM (0.0-0.7); EOSINOPHILS % (AUTO) 0.3 % (0.0-6.0); HEMATOCRIT 28 % (33-45); HEMOGLOBIN 8.6 g/dL (11.5-14.8); LYMPHOCYTES # (AUTO) 0.4 /CMM (0.8-4.8); MEAN CORPUSCULAR HEMOGLOBIN 25 PG (26.0-33.0); MEAN CORPUSCULAR HGB CONC 31 g/dl (31.0-36.0); MEAN CORPUSCULAR VOLUME 81 fL (82-100); MONOCYTES # (AUTO) 0.5 /CMM (0.1-1.30); MONOCYTES % (AUTO) 2.2 % (2.0-12.0); NEUTROPHILS # (AUTO) 20.8 /CMM (1.8-8.9); NEUTROPHILS % (AUTO) 95.4 % (43.0-81.0); PLATELET COUNT (AUTO) 626 /CMM (150-450); RDW COEFFICIENT OF VARIATION 21.6 (11.5-15.0); RED BLOOD CELL COUNT(AUTO) 3.46 MIL/uL (4.0-5.2); WHITE BLOOD COUNT (AUTO) 21.9 K/uL (4.3-11.0)
[2017-02-24 04:59] LABS: CALCIUM, SERUM 9.3 mg/dL (8.5-10.1); CREATININE 0.7 mg/dL (0.6-1.3); MAGNESIUM 1.9 mg/dL (1.8-2.4); PHOSPHORUS 3.2 mg/dL (2.5-4.9); POTASSIUM 2.9 mmol/L (3.5-5.1)
[2017-02-24] MEDS: FLUTICASONE/VILANTEROL 1 EACH BLST.W.DEV IH SCH (08:02)
[2017-02-24] MEDS: BOOST PLUS FOOD-CHOCLATE 237 ML BOX PO SCH ×2 (08:03→16:09)
[2017-02-24] MEDS: VANCOMYCIN 1 GM in IV D5W 250 ML IV SCH ×3 (08:03→20:48)
[2017-02-24] MEDS: LEVOTHYROXINE SODIUM 125 MCG TABLET PO SCH (08:03)
[2017-02-24] MEDS: predniSONE 20 MG TABLET PO SCH (08:03)
[2017-02-24] MEDS: VALACYCLOVIR HCL 500 MG TABLET PO SCH ×2 (08:03→20:00)
[2017-02-24] MEDS: TRAZODONE 50 MG TABLET PO SCH (08:03)
[2017-02-24] MEDS: AMIODARONE HCL 200 MG TABLET PO SCH (08:03)
[2017-02-24] MEDS: PANTOPRAZOLE 40 MG VIAL IV SCH (08:03)
[2017-02-24] MEDS: FUROSEMIDE 40 MG/4 ML VIAL IV SCH ×2 (08:03→16:07)
[2017-02-24] MEDS ORDERED: POTASSIUM CHLORIDE 20 MEQ TAB.PRT.SR PO ONE (08:30)
[2017-02-24] MEDS: POTASSIUM CL. PREMIX PERIPHER. 50 ML IV SCH ×4 (08:37→11:26)
--- NOTE | 2017-02-24 09:32 | NUR ---
COLORMAN NOTE 0720: Received patient awake, on Bipap. No respiratory distress noted at this time. SUGAR PICC intact. Ochoa cath intact. Noted with clear yellow urine drained to BSD. With Right chest Pleurx clamped. Still noted with right facial drooping. 0800: RT placed patient on 50% FIO2 Venti mask. sat, 89% O2 sat. Will continue to monitor. Able to tolerate PO meds. 0930: Still on Venturi mask, 89% O2 sat.
[2017-02-24] MEDS: BUDESONIDE RESPULE INH 0.5 MG/2 ML AMPUL.NEB IH SCH ×2 (11:03→17:54)
[2017-02-24 12:22] LABS: ABG BASE EXCESS 21.9 mmol/L; ABG OXYGEN SATURATION 93.3 % (92.0-98.5); ABG PH 7.482 (7.350-7.450); ABG PO2 73.4 mmHg (75.0-100.0); AaDO2 208.9 mmHg; COHb 0.2 % (0.5-1.5); MetHb 0.5 % (0.0-1.5); O2Hb 92.6 % (94.0-97.0); SITE, ABG Left Radial
[2017-02-24] MEDS: RIVAROXABAN 10 MG TABLET PO SCH (16:08)
--- NOTE | 2017-02-24 16:28 | NUR ---
CASINO RUNNER NOTE Remained off Bipap, on Venturi mask 91% O2 sat. MD aware for the ABG. Will continue to monitor. Patient refused to have bed bath and refused to be turned because of back pain, explained the risks and benefits of turning, still refused.
--- NOTE | 2017-02-24 20:00 | NUR ---
SWITCH CLEANER - NOTES - RECEIVED PT IN BED AWAKE AOX4. LUNG SOUNDS DIMINISHED, ON VENTURI MASK 15L 50% FIO2. BOWEL SOUNDS PRESENT. DÍAZ INTACT AND DRAINING. MURIEL PICC LINE PATENT AND INTACT. PULSES PRESENT. BED IN LOW LOCKED POSITION. CALL LIGHT WITHIN REACH. WILL CONTINUE TO MONITOR.
[2017-02-24] MEDS: HYDROCODONE/APAP 5/325MG 1 EACH TABLET PO PRN (21:12)
--- NOTE | 2017-02-24 23:00 | NUR ---
PT IS REFUSING BIPAP AT THIS TIME
[2017-02-25] VITALS (24 sets, daily range): BP systolic 111–152; BP diastolic 56–76
[2017-02-25] MEDS: HYDROMORPHONE 1 MG/1 ML DISP.SYRIN IV PRN ×6 (00:20→20:40)
[2017-02-25] MEDS: PIPERACILLIN /TAZOBACTAM 3.375 G in IV D5W 50 ML IV SCH ×5 (00:20→23:02)
--- NOTE | 2017-02-25 00:20 | NUR ---
OFFERED PATIENT BED BATH. PT REFUSED AT THIS TIME. WILL RE ATTEMPT LATER
[2017-02-25] MEDS: IPRATROPIUM NEB FS 0.5 MG/2.5 ML AMPUL.NEB NEB SCH ×4 (01:40→19:19)
--- NOTE | 2017-02-25 03:00 | NUR ---
PT CONTINUING TO REFUSE BIPAP
--- NOTE | 2017-02-25 04:30 | NUR ---
OFFERED PATIENT BED BATH. PATIENT CONTINUES TO REFUSE
[2017-02-25 04:33] LABS: BASOPHILS % (AUTO) 0.3 % (0.0-2.0); EOSINOPHILS # (AUTO) 0.1 /CMM (0.0-0.7); EOSINOPHILS % (AUTO) 0.4 % (0.0-6.0); HEMATOCRIT 28 % (33-45); HEMOGLOBIN 8.7 g/dL (11.5-14.8); LYMPHOCYTES # (AUTO) 0.4 /CMM (0.8-4.8); LYMPHOCYTES % (AUTO) 2.2 % (20.0-44.0); MEAN CORPUSCULAR HEMOGLOBIN 25 PG (26.0-33.0); MEAN CORPUSCULAR HGB CONC 31 g/dl (31.0-36.0); MEAN CORPUSCULAR VOLUME 82 fL (82-100); MONOCYTES # (AUTO) 2.7 /CMM (0.1-1.30); MONOCYTES % (AUTO) 13.9 % (2.0-12.0); NEUTROPHILS # (AUTO) 16.2 /CMM (1.8-8.9); NEUTROPHILS % (AUTO) 83.2 % (43.0-81.0); PLATELET COUNT (AUTO) 445 /CMM (150-450); RDW COEFFICIENT OF VARIATION 22.5 (11.5-15.0); RED BLOOD CELL COUNT(AUTO) 3.41 MIL/uL (4.0-5.2); WHITE BLOOD COUNT (AUTO) 19.5 K/uL (4.3-11.0)
[2017-02-25 04:48] LABS: CALCIUM, SERUM 9.3 mg/dL (8.5-10.1); CREATININE 0.7 mg/dL (0.6-1.3); PHOSPHORUS 3.3 mg/dL (2.5-4.9); POTASSIUM 3.6 mmol/L (3.5-5.1)
--- NOTE | 2017-02-25 05:11 | NUR ---
PT PLACED BACK ON BIPAP RIGHT NOW AFTER SOME ENCOURAGEMENT SHE AGREED
[2017-02-25 05:12] LABS: BAND % (MANUAL) 4 % (0.0-5.0); EOSINOPHILS % (MANUAL) 1 % (0-4); LYMPHOCYTES % (MANUAL) 5 % (16-48); MONOCYTES % (MANUAL) 9 % (0-11.0); NEUTROPHILS % (MANUAL) 81 (42-76)
[2017-02-25] MEDS: PANTOPRAZOLE 40 MG VIAL IV SCH (08:04)
[2017-02-25] MEDS: predniSONE 20 MG TABLET PO SCH (08:04)
[2017-02-25] MEDS: VALACYCLOVIR HCL 500 MG TABLET PO SCH ×2 (08:04→20:28)
[2017-02-25] MEDS: FLUTICASONE/VILANTEROL 1 EACH BLST.W.DEV IH SCH (08:04)
[2017-02-25] MEDS: FUROSEMIDE 40 MG/4 ML VIAL IV SCH (08:04)
[2017-02-25] MEDS: LEVOTHYROXINE SODIUM 125 MCG TABLET PO SCH (08:05)
[2017-02-25] MEDS: AMIODARONE HCL 200 MG TABLET PO SCH (08:05)
[2017-02-25] MEDS: BOOST PLUS FOOD-CHOCLATE 237 ML BOX PO SCH ×2 (08:05→16:41)
[2017-02-25] MEDS: TRAZODONE 50 MG TABLET PO SCH (08:05)
[2017-02-25] MEDS: BUDESONIDE RESPULE INH 0.5 MG/2 ML AMPUL.NEB IH SCH ×2 (09:00→17:00)
--- NOTE | 2017-02-25 09:21 | NUR ---
EXTRUDER OPERATOR HORIZONTAL NOTE 0720: Received patient awake, on Bipap, placed on Venturi mask as requested. 89% O2 sat, will continue to monitor. SUGAR PICC intact. Ochoa cath intact, noted with clear yellow urine drained to BSD. 0810: AM meds given with apple sauce. Only ate apple sauce and 1/8 of the boost. 0915: S/E by Dr. Beasley, remained on Venturi mask. Sat 88-89%.
[2017-02-25] MEDS ORDERED: acetaZOLAMIDE SODIUM 500 MG/VIAL VIAL IV ONE (10:30)
--- NOTE | 2017-02-25 12:38 | NUR ---
TOBACCO SAMPLE PULLER NOTE 1030: Patient spoke with patient re: co0de status, changed to DNR/DNI. 1230: Followed up again with the pharmacy re: 0900 Vanco dose made them aware random level 24, awaiting for the order.
--- NOTE | 2017-02-25 14:13 | NUR ---
RT PATIENT HAD A VISITOR AND DID NOT WANT THE TX AT THIS TIME
--- NOTE | 2017-02-25 14:39 | NUR ---
MANAGER COMPLETIONS NOTE Placed on 6LPM via SC for now as requested so she can talk to Oneida via phone, Sat 92%. Spoke with Oneida as well (daughter in law) via phone and updated re: patient's condition. Also aware for the Code status changed to DNR/DNI. Per case Piter chowdary called and somebody will come again tomorrow for reevaluation.
--- NOTE | 2017-02-25 15:20 | NUR ---
SW received a voicemail message earlier today from pt's TRICE Cortes informing SW that pt. is expressing not wanting to live and they are trying to get hold of friends and family. SW met with TRICE Cortes later in the afternoon since SW was unable to come earlier. TRICE Cortes informed SW that pt. is much calmer now and was able to talk to Oneida (daughter in law) via phone. No social service needs are requested at this time. SW is available if needed. Pt. was evaluated by Piter and will be re-evaluated tomorrow for possible admission to [place].
[2017-02-25] MEDS: RIVAROXABAN 10 MG TABLET PO SCH (16:31)
--- NOTE | 2017-02-25 16:51 | NUR ---
HIGH SCHOOL SPECIAL EDUCATION TEACHER NOTE Still with episode of refusing repositioning secondary to back pain. Will continue to encourage. Dilaudid given as ordered. Shy, friend at bedside.
[2017-02-25] MEDS: ALBUTEROL FS 2.5 MG/0.5 ML VIAL.NEB NEB PRN (19:20)
--- NOTE | 2017-02-25 20:00 | NUR ---
SQUARING MACHINE OPERATOR - NOTES - RECEIVED PT IN BED AWAKE AOX4. LUNG SOUNDS DIMINISHED, ON VENTURI MASK 15L 50% FIO2. BOWEL SOUNDS PRESENT. DÍAZ INTACT AND DRAINING. MURIEL PICC LINE PATENT AND INTACT. PULSES PRESENT. BED IN LOW LOCKED POSITION. CALL LIGHT WITHIN REACH. WILL CONTINUE TO MONITOR.
--- NOTE | 2017-02-25 20:30 | NUR ---
PT GIVEN DILAUDID FOR SEVERE BACK PAIN, PT REFUSED TURNING BECAUSE OF BACK PAIN, PILLOW PLACED UNDER RIGHT ARM
[2017-02-25] MEDS ORDERED: IV NS 0.9% 250 ML IV PRN (23:30)
[2017-02-26] VITALS (26 sets, daily range): BP systolic 112–166; BP diastolic 60–80
[2017-02-26] MEDS: HYDROMORPHONE 1 MG/1 ML DISP.SYRIN IV PRN ×5 (00:43→19:38)
[2017-02-26] MEDS: IPRATROPIUM NEB FS 0.5 MG/2.5 ML AMPUL.NEB NEB SCH ×4 (01:37→19:50)
[2017-02-26 04:28] LABS: EOSINOPHILS # (AUTO) 0.1 /CMM (0.0-0.7); EOSINOPHILS % (AUTO) 0.3 % (0.0-6.0); HEMATOCRIT 29 % (33-45); HEMOGLOBIN 8.8 g/dL (11.5-14.8); LYMPHOCYTES # (AUTO) 0.6 /CMM (0.8-4.8); LYMPHOCYTES % (AUTO) 2.5 % (20.0-44.0); MEAN CORPUSCULAR HEMOGLOBIN 25 PG (26.0-33.0); MEAN CORPUSCULAR HGB CONC 30 g/dl (31.0-36.0); MEAN CORPUSCULAR VOLUME 82 fL (82-100); MONOCYTES # (AUTO) 0.5 /CMM (0.1-1.30); MONOCYTES % (AUTO) 2.3 % (2.0-12.0); NEUTROPHILS # (AUTO) 21.1 /CMM (1.8-8.9); NEUTROPHILS % (AUTO) 94.9 % (43.0-81.0); PLATELET COUNT (AUTO) 635 /CMM (150-450); RDW COEFFICIENT OF VARIATION 22.3 (11.5-15.0); RED BLOOD CELL COUNT(AUTO) 3.57 MIL/uL (4.0-5.2); WHITE BLOOD COUNT (AUTO) 22.2 K/uL (4.3-11.0)
--- NOTE | 2017-02-26 04:34 | NUR ---
PT COMPLAINED OF NAUSEA, ZOFRAN GIVEN ORDERED. PT ALSO COMPLAINED OF RIGHT NECK SWELLING AND REQUESTED A WARM PACK FOR NECK.
[2017-02-26 04:42] LABS: CALCIUM, SERUM 9.6 mg/dL (8.5-10.1); CREATININE 0.8 mg/dL (0.6-1.3); MAGNESIUM 2.2 mg/dL (1.8-2.4); PHOSPHORUS 4.3 mg/dL (2.5-4.9)
[2017-02-26 04:56] LABS: POTASSIUM 2.7 mmol/L (3.5-5.1)
[2017-02-26] MEDS: PIPERACILLIN /TAZOBACTAM 3.375 G in IV D5W 50 ML IV SCH ×3 (05:00→17:51)
[2017-02-26 05:11] LABS: BAND % (MANUAL) 1 % (0.0-5.0); LYMPHOCYTES % (MANUAL) 1 % (16-48); NEUTROPHILS % (MANUAL) 94 (42-76); REACTIVE LYMPHOCYTES 4 % (0-0)
[2017-02-26] MEDS ORDERED: POTASSIUM CL. PREMIX PERIPHER. 50 ML ONE ×2 (05:24→06:30)
[2017-02-26] MEDS: POTASSIUM CL. PREMIX PERIPHER. 50 ML IV SCH ×4 (05:37→09:06)
[2017-02-26] MEDS: BUDESONIDE RESPULE INH 0.5 MG/2 ML AMPUL.NEB IH SCH ×2 (07:27→13:52)
[2017-02-26] MEDS: LEVOTHYROXINE SODIUM 125 MCG TABLET PO SCH (07:59)
[2017-02-26] MEDS: BOOST PLUS FOOD-CHOCLATE 237 ML BOX PO SCH ×2 (07:59→17:51)
[2017-02-26] MEDS: PANTOPRAZOLE 40 MG VIAL IV SCH (08:00)
[2017-02-26] MEDS: FLUTICASONE/VILANTEROL 1 EACH BLST.W.DEV IH SCH (08:00)
[2017-02-26] MEDS ORDERED: VANCOMYCIN 1 GM in IV D5W 250 ML IV SCH (08:00)
--- NOTE | 2017-02-26 08:00 | NUR ---
ICU/RN INITIAL NOTES,AM RECEIVED REPORT FROM NIGHT NURSE. PT RESTING IN BED WITH FRIEND AT BEDSIDE. PT PLACED ON NASAL CANULA 6LITERS, TOLERATING WELL. MAINTAINING 02 SAT >92%. PT SINUS ON TELE. POTASSIUM LOW, REPLACEMENT INFUSING ORDERED. DÍAZ CATH IN PLACE, DRAINING URINE. PICC LINE PATENT AND INTACT, NO S/S OF INFECTION OR INFILTRATION NOTED. RIGHT CHEST TUBE IN PLACE, CLAMPED. ALL NEEDS WILL BE MET, SAFETY MEASURES TAKEN, BED IN LOW POSITION, SIDE RAILS UP, CALL LIGHT WITHIN REACH, POSSIBLE SECOND EVAL FROM [facility].
[2017-02-26] MEDS: predniSONE 20 MG TABLET PO SCH (08:01)
[2017-02-26] MEDS: AMIODARONE HCL 200 MG TABLET PO SCH (08:01)
[2017-02-26] MEDS: VALACYCLOVIR HCL 500 MG TABLET PO SCH (08:01)
[2017-02-26] MEDS: TRAZODONE 50 MG TABLET PO SCH (08:01)
[2017-02-26 10:28] LABS: ABG BASE EXCESS 15.7 mmol/L; ABG OXYGEN SATURATION 92.8 % (92.0-98.5); ABG PCO2 75.9 mmHg (35.0-45.0); ABG PH 7.375 (7.350-7.450); ABG PO2 74.8 mmHg (75.0-100.0); AaDO2 145.1 mmHg; COHb 0.5 % (0.5-1.5); MetHb 0.5 % (0.0-1.5); O2Hb 91.9 % (94.0-97.0); SITE, ABG Right Radial
--- NOTE | 2017-02-26 10:30 | NUR ---
ICU/RN: COLLIN DONE, INFORMED OF RESULTS. ORDERS RECEIVED TO TRANSFER PT TO [facility]. WILL FOLLOW THROUGH.
[2017-02-26] MEDS ORDERED: acetaZOLAMIDE SODIUM 500 MG/VIAL VIAL IV ONE (14:00)
--- NOTE | 2017-02-26 16:20 | NUR ---
ICU/RN: PT REFUSING TO BE TURNED 1000-PT REFUSED TURNING 1200- PT REFUSED TURNING 1600-PT REFUSED TURNING EDUCATED PT, AND FAMILY PRESENT. UPON MORNING PHYSICAL ASSESSMENT. EDUCATION GIVEN REGARDING IMPORTANCE AND POSSIBLE COMPLICATIONS THAT CAN BE CAUSED FROM INACTIVITY AND NOT TURNING AND REPOSITIONING EVERY 2 HOURS. PT CONTINUES TO REFUSE
[2017-02-26] MEDS: RIVAROXABAN 10 MG TABLET PO SCH (17:52)
--- NOTE | 2017-02-26 19:38 | NUR ---
ICU/RN ENDING NOTES,AM REPORT ENDORSED TO TRICE YUAN PT PENDING TRANSFER TO [facility]. REPORT ALREADY ENDORSED TO TRICE KELLOGG AT [facility]. ALL EXIT CARE DONE, WOUND PHOTOS TAKEN. SACRAL DTI DOCUMENTED SINCE PT HAS BEEN REFUSING TO BE TURNED AND REPOSITIONED. ALL TRANSFER PAPERS COMPLETED, PER MD PT WILL BE TRANSFERRED WITH DÍAZ AND PICC LINE. MED RECON DONE AND PLACED IN CHART. ALL NEEDS ATTENDED TO, SAFETY MEASURES TAKEN. PT WILL BE TRANSFERRED PER ACLS GUIDELINES. ALL DISCHARGE COMPLETED
[2017-02-26] MEDS: ALBUTEROL FS 2.5 MG/0.5 ML VIAL.NEB NEB PRN (19:50)
--- NOTE | 2017-02-26 20:00 | NUR ---
ROTOR COIL TAPER OR DECLINED ASSESSMENT STATES SHE IS LEAVING ANYHOW.
--- NOTE | 2017-02-26 20:00 | NUR ---
PRODUCE INSPECTOR PT DECLINED SKIN ASSESSMENT OR TO BE TURNED. Addendum: 02/26/17 at 2034 by LISSY CAAL RN Amended: Links added.
--- NOTE | 2017-02-26 20:10 | NUR ---
DREDGE ENGINEER PT DCD TO [facility]; PICC LINE AND DÍAZ CATH IN PLACE. PT VERBALIZES PAIN RELIEF 09/12. ALL PAPERWORK PREPARED BY PRIOR SHIFT; REPORT ALSO GIVEN BY PRIOR SHIFT; GIVEN TO AMBULANCE TRANSPORT.
== END 2017-02-26 20:50 | disposition short-term general hospital (02) | DRG 871 ==
LOC: ER 16:45 → TELE 19:09 → MED 02-18 06:52 → ICU 02-22 12:14
PROVIDERS: ADMIT Internal Medicine; ATTEND Internal Medicine
PROC: 02HV33Z Insertion of Infusion Device into Superior Vena Cava, Percutaneous Approach (ICD-10-PCS; 2017-02-18)
PROC: 5A09457 Assistance with Respiratory Ventilation, 24-96 Consecutive Hours, Continuous Positive Airway Pressure (ICD-10-PCS; principal; 2017-02-22)
DX: A41.9 Sepsis, unspecified organism (principal); J96.01 Acute respiratory failure with hypoxia; J81.1 Chronic pulmonary edema; J91.0 Malignant pleural effusion; E87.3 Alkalosis; J96.02 Acute respiratory failure with hypercapnia; I82.C11 Acute embolism and thrombosis of right internal jugular vein; J18.9 Pneumonia, unspecified organism; C34.00 Malignant neoplasm of unspecified main bronchus; E66.2 Morbid (severe) obesity with alveolar hypoventilation; N39.0 Urinary tract infection, site not specified; Z99.81 Dependence on supplemental oxygen; J44.9 Chronic obstructive pulmonary disease, unspecified; G51.0 Bell's palsy; K11.20 Sialoadenitis, unspecified; Z87.891 Personal history of nicotine dependence; Z87.01 Personal history of pneumonia (recurrent); Z86.73 Personal history of transient ischemic attack (TIA), and cerebral infarction without residual deficits; Z86.718 Personal history of other venous thrombosis and embolism; I49.9 Cardiac arrhythmia, unspecified; E03.9 Hypothyroidism, unspecified; Z79.899 Other long term (current) drug therapy; E78.5 Hyperlipidemia, unspecified; F09 Unspecified mental disorder due to known physiological condition; T38.0X5A Adverse effect of glucocorticoids and synthetic analogues, initial encounter; Y92.129 Unspecified place in nursing home as the place of occurrence of the external cause; Z68.28 Body mass index [BMI] 28.0-28.9, adult; Z66 Do not resuscitate; R65.20 Severe sepsis without septic shock; G62.9 Polyneuropathy, unspecified; K44.9 Diaphragmatic hernia without obstruction or gangrene; K59.00 Constipation, unspecified; E87.6 Hypokalemia
CPT/HCPCS: 36415; 36600; 70450-TC; 70487-TC; 70491-TC; 71010-TC; 80048-TC; 80061-TC; 80076-TC; 80202-TC; 81000-TC; 82803-TC; 82962-TC; 83605-TC; 83690-TC; 83735-TC; 84100-TC; 84439-TC; 84443-TC; 84484-TC; 85025-TC; 85730-TC; 87040-TC; 87081-TC; 87086-TC; 92521; 92526; 93970-TC; 93971-TC; 94799-TC; 97110-TC; 97530-TC; A4606; C9113; J1120; J1170; J1650; J1940; J2060; J2405; J2543; J3370; J3480; J7042; J7050; J7060; Q9967; Z7610